=== PATIENT | female | born 2005 | race African-American/Black ===

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

== ENCOUNTER 2024-01-09 19:59 | Emergency (ER) | payer BC, SELFPAY ==
[2024-01-09] MEDS ORDERED: Ondansetron ODT 4 MG TAB ONE (21:05)
[2024-01-09] MEDS ORDERED: Ibuprofen 800 MG TAB ONE (21:05)
[2024-01-09 21:18] LABS: SARS-CoV-2 E Target Negative; SARS-CoV-2 N2 Target Negative; SARS-CoV-2 NAA Rapid Test Not Detected (NotDetected); SARS-CoV-2 RdRP gene Negative
== END 2024-01-09 21:20 | disposition home or self-care (01) ==
LOC: MADERS 19:59
DX: K52.89 Other specified noninfective gastroenteritis and colitis (principal)
CPT/HCPCS: 87081; 87430; 99284; Q0162; U0002

== ENCOUNTER 2024-01-16 18:29 | Emergency (ER) | payer BC ==
[2024-01-16] MEDS ORDERED: Metoclopramide HCl 10 MG (2 mL) VIAL ONE (19:29)
== END 2024-01-16 20:00 | disposition home or self-care (01) ==
LOC: MADERS 18:29
DX: K52.9 Noninfective gastroenteritis and colitis, unspecified (principal); R11.2 Nausea with vomiting, unspecified
CPT/HCPCS: 96372; J2765